=== PATIENT | male | born 1995 | race Caucasian/White ===

== ENCOUNTER 2019-09-26 22:00 | Emergency (ER) | payer MEDICAID ==
[~2019-09-26] VITALS: Ht 180.3 cm; Wt 95.3 kg
[2019-09-26 22:06] VITALS: BP_SYST 119
--- NOTE | 2019-09-26 22:10 | NUR ---
Patient triaged and placed in waiting room. VSS and patient appears in no acute distress at this time. Accompanied by GIRLFRIEND, awaiting available bed, and MD notified of need for MSE.
--- NOTE | 2019-09-26 23:08 | NUR ---
Patient to ER bed 04 to gown for evaluation. Side rails up. Report given to RUFINA Steele
--- NOTE | 2019-09-26 23:10 | NUR ---
Pt complains of chest wall pain x 1 week. Pt denies short of breath. Per pt, he also feels as if acid is coming up from his stomach x 2 weeks. Pt denies N/V or fever. No other injuries/complaints per patient or noted.
--- NOTE | 2019-09-26 23:11 | NUR ---
ER Dr. Ireland at bedside examining patient.
[2019-09-26 23:22] VITALS: BP_SYST 126
--- NOTE | 2019-09-26 23:22 | NUR ---
Patient given written and verbal discharge instructions and verbalizes understanding. ER MD discussed with patient the results and treatment provided. Patient in stable condition. ID arm band removed. Rx of Nexium and Motrin given. Patient educated on pain management and to follow up with PMD. Pain Scale 0. Opportunity for questions provided and answered. Medication side effect fact sheet provided.
== END 2019-09-26 23:22 | disposition home or self-care (01) ==
LOC: SED 22:00
DX: R07.89 Other chest pain (principal); K21.9 Gastro-esophageal reflux disease without esophagitis
CPT/HCPCS: 93005; 99283

== ENCOUNTER 2019-10-22 14:35 | Emergency (ER) | payer MEDICAID ==
[~2019-10-22] VITALS: Ht 182.9 cm; Wt 97.5 kg
[2019-10-22 14:35] VITALS: BP_SYST 119
--- NOTE | 2019-10-22 14:35 | NUR ---
BROUGHT BACK TO BED #7 AND TRIAGED, REPORT GIVEN TO NELA
--- NOTE | 2019-10-22 14:43 | NUR ---
ER DORINA Brunner examining patient.
--- NOTE | 2019-10-22 14:44 | NUR ---
Patient is awake, alert, and oriented x4. Patient reports he woke up with a sore back, at work today he was pulling a bicycle off the rack and felt sudden pain across his mid back. Patient denies, nausea, vomiting, and diarrhea.
[2019-10-22] MEDS ORDERED: KETOROLAC TROMETHAMINE 60 MG/2 ML VIAL IM ONE (15:00)
[2019-10-22 15:43] VITALS: BP_SYST 114
--- NOTE | 2019-10-22 15:43 | NUR ---
Patient given written and verbal discharge instructions and verbalizes understanding. ER MD discussed with patient the results and treatment provided. Patient in stable condition. ID arm band removed. Rx of motrin given. Patient educated on pain management and to follow up with PMD. Pain Scale 6/10. Opportunity for questions provided and answered. Medication side effect fact sheet provided.
== END 2019-10-22 15:43 | disposition home or self-care (01) ==
LOC: SED 14:35
DX: S29.012A Strain of muscle and tendon of back wall of thorax, initial encounter (principal); X50.0XXA Overexertion from strenuous movement or load, initial encounter; Y93.89 Activity, other specified; Y92.512 Supermarket, store or market as the place of occurrence of the external cause; Y99.8 Other external cause status
CPT/HCPCS: 72072; 96372; 99283; J1885